=== PATIENT | female | born 1975 | race Caucasian/White ===

== ENCOUNTER 2017-05-16 06:43 | Day surgery (SDC) | payer BC ==
[~2017-05-16 06:43] MED LIST: Buffered Lidocaine 0.9% SYRIN* 5 ML/SYR SYRINGE INTRADERM ONE
[2017-05-16] MEDS ORDERED: ceFAZolin 2 GM in NS PREMIX(*) 2 GM/100 ML BAG IVPB ONE (07:04)
[2017-05-16] MEDS ORDERED: Bupivacaine 0.25% SDV* 30 ML ONE (07:20)
[2017-05-16] MEDS ORDERED: Lidocaine 1% MPF wEPI 200,000* 30 ML SDV ONE (07:20)
[2017-05-16] MEDS ORDERED: Naloxone* 0.4 MG/ML 1 ML VIAL IV PRN (07:36)
[2017-05-16] MEDS ORDERED: fentaNYL* 50 MCG/ML 2 ML VIAL (100 MCG VIAL) ONE (07:42)
[2017-05-16] MEDS ORDERED: Lidocaine 2% PF * 5 ML VIAL ONE (07:48)
[2017-05-16] MEDS ORDERED: Propofol* 10 MG/ML 20 ML BTL IV PUSH ONE (07:48)
[2017-05-16] MEDS ORDERED: Ibuprofen TAB* 400 MG ONE (08:48)
[2017-05-16 09:12] VITALS: BP 114/70
== END 2017-05-16 09:10 | disposition home or self-care (01) ==
LOC: OREAST 06:43
PROVIDERS: ATTEND Plastic Surgery
DX: D17.0 Benign lipomatous neoplasm of skin and subcutaneous tissue of head, face and neck (principal); R22.0 Localized swelling, mass and lump, head
CPT/HCPCS: 81025; 88304; A9270-GY; J0690; J2001; J2704; J3010